=== PATIENT | female | born 1960 | race Caucasian/White ===

== ENCOUNTER 2024-07-18 06:44 | Emergency (ER) | payer BC ==
--- NOTE | 2024-07-18 07:41 | ED ---
General Adult HPI - General Source: patient, RN notes reviewed Mode of arrival: ambulatory Limitations: no limitations <Jyoti Saldivar - Last Filed: 07/18/24 07:41> - General Source: patient, RN notes reviewed, old records reviewed <Garrett Bah - Last Filed: 07/18/24 12:34> - General Chief complaint: Vaginal Bleeding Stated complaint: vaginal bleeding Time Seen by Provider: 07/18/24 07:41 - History of Present Illness Initial comments: Quick note: 63-year-old female presents to the emergency department for evaluation of vaginal bleeding. Patient reports that this has been ongoing for the past 2 years but has been light bleeding. She notes that over the past 2 days she has had significantly heavier bleeding. (Jyoti Saldivar) Patient is a 63-year-old female who presents emergency department vaginal bleeding. Originally seen as a quick note. Patient has a history of vaginal bleeding that has been progressively worsening over the last 2 years. Has not had any [facility] follow-up. States that over the last few days it has been more heavy. Presents for further evaluation. Has not seen [facility] or a physician in multiple years. Is not on blood thinners. Endorses abdominal cramping with it. Denies any chest pain, GAIL. Denies any weakness or lightheadedness. Presents over concerning for the bleeding. No abdominal surgical history. (Garrett Bah) - Related Data Allergies Allergy/AdvReac Type Severity Reaction Status Date / Time No Known Allergies Allergy Verified 07/18/24 07:33 Review of Systems ROS Other: All systems not noted in ROS Statement are negative. <Jyoti Saldivar - Last Filed: 07/18/24 07:41> ROS Other: All systems not noted in ROS Statement are negative. <Garrett Bah - Last Filed: 07/18/24 12:34> ROS Statement: Those systems with pertinent positive or pertinent negative responses have been documented in the HPI. Review of Systems: CONST: Denies fever EYES: Denies blurry vision ENT: Denies nasal congestion C/V: Denies Chest pain RESP: Denies shortness of breath GI: Denies abdominal pain : Endorses vaginal bleeding SKIN: Denies rash. MSK: Denies joint pain. NEURO: Denies headache (Garrett Bah) Past Medical History Past Medical History: Coronary Artery Disease (CAD) History of Any Multi-Drug Resistant Organisms: None Reported Past Surgical History: No Surgical Hx Reported Past Psychological History: No Psychological Hx Reported Smoking Status: Never smoker Past Alcohol Use History: None Reported Past Drug Use History: None Reported <Jyoti Saldivar - Last Filed: 07/18/24 07:41> General Exam Limitations: no limitations <Jyoti Saldivar - Last Filed: 07/18/24 07:41> <Garrett Bah - Last Filed: 07/18/24 12:34> - General Exam Comments Initial Comments: Visual Physical Exam Vital signs reviewed General: Well-appearing, nontoxic, no acute distress. Head: Normocephalic, atraumatic Eyes: PERRLA, EOMI ENT: Airway patent Chest: Nonlabored breathing Skin: No visual rash, normal skin tone Neuro: Alert and oriented 3 Musculoskeletal: No gross abnormalities (Jyoti Saldivar) General: Appears in no acute distress. HEAD: Normal with no signs of head trauma. EYES: EOMI ENT: Hearing grossly intact RESPIRATORY: Clear breath sounds bilaterally. No wheezes, rales, or rhonchi. C/V: Regular rate and rhythm. S1 and S2 auscultated. Peripheral pulses 2+ intact throughout. ABD: Abd is soft, nontender, nondistended EXT: Normal range of motion, no obvious deformity SKIN: No rashes or lesions observed on exposed skin. NEURO: Alert and oriented x 4. (Garrett Bah) Course Vital Signs 07/18/24 07:30 Temperature 98.6 F Pulse Rate 113 H Respiratory 20 Rate Blood Pressure 141/79 O2 Sat by Pulse 99 Oximetry Medical Decision Making <Jyoti Saldivar - Last Filed: 07/18/24 07:41> - Lab Data Result diagrams: 07/18/24 10:20 07/18/24 10:20 <Garrett Bah - Last Filed: 07/18/24 12:34> - Medical Decision Making Quick note preformed and electronically signed by Jyoti Saldivar PA-C (Jyoti Saldivar) Was pt. sent in by a medical professional or institution ([facility], [facility], urgent care, hospital, or senior care...) When possible be specific @ -No Did you speak to anyone other than the patient for history (EMS, parent, family, police, friend...)? What history was obtained from this source @ -No Did you review nursing and triage notes (agree or disagree)? Why? @ -I reviewed and agree with nursing and triage notes Were old charts reviewed (outside hosp., previous admission, EMS record, old EKG, old radiological studies, urgent care reports/EKG's, senior care records)? Report findings @ -No old charts were reviewed Differential Diagnosis (chest pain, altered mental status, abdominal pain women, abdominal pain men, vaginal bleeding, weakness, fever, dyspnea, syncope, headache, dizziness, GI bleed, back pain, seizure, CVA, palpatations, mental health, musculoskeletal)? @ -Differential Vaginal Bleeding: Spontaneous , threatened , molar , ectopic , bloody show, incompetent cervix, abruptioplacenta, placenta previa, uterine rupture, dysfunctional uterine bleeding, hemorrhage, uterine fibr oids, this is not meant to be an all-inclusive list. EKG interpreted by me (3pts min.). @ -None done X-rays interpreted by me (1pt min.). @ -None done CT interpreted by me (1pt min.). @ -None done U/S interpreted by me (1pt. min.). @ -Pelvic ultrasound reveals thickened endometrium concerning for endometrial carcinoma. What testing was considered but not performed or refused? (CT, X-rays, U/S, labs)? Why? @ -None What meds were considered but not given or refused? Why? @ -None Did you discuss the management of the patient with other professionals (professionals i.e. , PA, CLOTH SHEARER, lab, RT, psych nurse, social worker school, pulp [employer] supervisor, teacher, resident medical officer, upper caser)? Give summary @ -No Was smoking cessation discussed for >3mins.? @ -No Was critical care preformed (if so, how long)? @ -No Were there social determinants of health that impacted care today? How? (Homelessness, low income, unemployed, alcoholism, drug addiction, transportation, low edu. Level, literacy, decrease access to med. care, usp, rehab)? @ -No Was there de-escalation of care discussed even if they declined (Discuss DNR or withdrawal of care, Hospice)? DNR status @ -No What co-morbidities impacted this encounter? (DM, HTN, Smoking, COPD, CAD, Cancer, CVA, ARF, Chemo, Hep., AIDS, mental health diagnosis, sleep apnea, morbid obesity)? @ -None Was patient admitted / discharged? Hospital course, mention meds given and route, prescriptions, significant lab abnormalities, going to OR and other pertinent info. @ -Patient presents with chronic vaginal bleeding that is worsened over the last few days. Patient originally seen as a quick note. Ultrasound has been completed by the time evaluated the patient. I did inform her that it did show a thickened endometrial with concern for endometrial carcinoma. We will continue with laboratory studies to evaluate for possible anemia or coagulation abnormalities. She was in agreement this plan. Vital signs are within acceptable limits. She will be given dose of Tylenol for pain control. Laboratory studies remarkable for mild leukocytosis of 15 which is likely reactive. Urinalysis shows diffuse blood and WBCs but this is likely from the vaginal bleeding. No concern for UTI at this time. I discussed results with the patient. She expresses understanding of the urgency for follow-up considering her potential diagnosis of endometrial carcinoma. She was in agreement with plan for close follow-up with [facility]. I also provided her with a print out list of [facility] endometrial carcinoma specialist. She is given their phone number for calling tomorrow. Patient is also given a copy of her ultrasound disc as well as ultrasound report. She was given a list of [facility] PCPs as well as a local [facility]. Patient expressed understanding of these instructions with for close follow-up for further evaluation. She was in agreement with this plan for discharge at this time. Strict return precautions discussed. I instructed the patient to follow up with their PCP in the next 1-3 days. I explained that the patient should return to the emergency department if they experience any worsening symptoms. Strict return precautions were discussed with the patient. The patient expressed understanding of these instructions. I answered all questions that the patient had. The patient was discharged home in good condition with their prescriptions and follow up information. Undiagnosed new problem with uncertain prognosis? @ -No Drug Therapy requiring intensive monitoring for toxicity (Heparin, Nitro, Insulin, Cardizem)? @ -No Were any procedures done? @ -No Diagnosis/symptom? @ -Dysfunctional uterine bleeding, concerning findings for endometrial carcinoma Acute, or Chronic, or Acute on Chronic? @ -Acute on chronic Uncomplicated (without systemic symptoms) or Complicated (systemic symptoms)? @ -Complicated Side effects of treatment? @ -No Exacerbation, Progression, or Severe Exacerbation? @ -No Poses a threat to life or bodily function? How? (Chest pain, USA, MD, pneumonia, PE, COPD, DKA, ARF, appy, cholecystitis, CVA, Diverticulitis, Homicidal, Suicidal, threat to staff... and all critical care pts) @ -Unlikely in the short-term but if patient has endometrial carcinoma, can be life-threatening. (Garrett Bah) - Lab Data Lab Results 07/18/24 07/18/24 07/18/24 Range/Units 09:54 10:20 10:20 WBC 15.4 H (3.8-10.6) k/uL RBC 4.07 (3.80-5.40) m/uL Hgb 12.3 (11.4-16.0) gm/dL Hct 36.1 (34.0-46.0) % MCV 88.8 (80.0-100.0) fL MCH 30.2 (25.0-35.0) pg MCHC 34.0 (31.0-37.0) g/dL RDW 13.3 (11.5-15.5) % Plt Count 364 (150-450) k/uL MPV 7.6 Neutrophils % 87 % Lymphocytes % 8 % Monocytes % 4 % Eosinophils % 0 % Basophils % 0 % Neutrophils # 13.4 H (1.3-7.7) k/uL Lymphocytes # 1.2 (1.0-4.8) k/uL Monocytes # 0.6 (0-1.0) k/uL Eosinophils # 0.1 (0-0.7) k/uL Basophils # 0.1 (0-0.2) k/uL PT 10.6 (10.0-12.5) sec INR 0.9 (<1.2) APTT 21.7 L (22.0-30.0) sec Sodium (137-145) mmol/L Potassium (3.5-5.1) mmol/L Chloride (98-107) mmol/L Carbon Dioxide (22-30) mmol/L Anion Gap mmol/L BUN (7-17) mg/dL Creatinine (0.52-1.04) mg/dL Est GFR (CKD-EPI)AfAm (>60 ml/min/1.73 sqM) Est GFR (CKD-EPI)NonAf (>60 ml/min/1.73 sqM) Glucose (74-99) mg/dL Calcium (8.4-10.2) mg/dL Total Bilirubin (0.2-1.3) mg/dL AST (14-36) U/L ALT (4-34) U/L Alkaline Phosphatase (38-126) U/L Total Protein (6.3-8.2) g/dL Albumin (3.5-5.0) g/dL Urine Appearance Bloody H (Clear) Urine RBC >182 H (0-5) /hpf Urine WBC 127 H (0-5) /hpf Blood Type Blood Type Confirm Blood Type Recheck Bld Type Recheck Status Antibody Screen Spec Expiration Date 07/18/24 07/18/24 07/18/24 Range/Units 10:20 10:20 10:25 WBC (3.8-10.6) k/uL RBC (3.80-5.40) m/uL Hgb (11.4-16.0) gm/dL Hct (34.0-46.0) % MCV (80.0-100.0) fL MCH (25.0-35.0) pg MCHC (31.0-37.0) g/dL RDW (11.5-15.5) % Plt Count (150-450) k/uL MPV Neutrophils % % Lymphocytes % % Monocytes % % Eosinophils % % Basophils % % Neutrophils # (1.3-7.7) k/uL Lymphocytes # (1.0-4.8) k/uL Monocytes # (0-1.0) k/uL Eosinophils # (0-0.7) k/uL Basophils # (0-0.2) k/uL PT (10.0-12.5) sec INR (<1.2) APTT (22.0-30.0) sec Sodium 137 (137-145) mmol/L Potassium 4.0 (3.5-5.1) mmol/L Chloride 101 (98-107) mmol/L Carbon Dioxide 24 (22-30) mmol/L Anion Gap 12 mmol/L BUN 18 H (7-17) mg/dL Creatinine 0.84 (0.52-1.04) mg/dL Est GFR (CKD-EPI)AfAm 85 (>60 ml/min/1.73 sqM) Est GFR (CKD-EPI)NonAf 74 (>60 ml/min/1.73 sqM) Glucose 114 H (74-99) mg/dL Calcium 9.4 (8.4-10.2) mg/dL Total Bilirubin 0.8 (0.2-1.3) mg/dL AST 28 (14-36) U/L ALT 26 (4-34) U/L Alkaline Phosphatase 80 (38-126) U/L Total Protein 7.4 (6.3-8.2) g/dL Albumin 4.6 (3.5-5.0) g/dL Urine Appearance (Clear) Urine RBC (0-5) /hpf Urine WBC (0-5) /hpf Blood Type A Negative Blood Type Confirm A Negative Blood Type Recheck No Previous Record Bld Type Recheck Status CABO Indicated Antibody Screen NEGATIVE Spec Expiration Date 07/21/20242319 Disposition <Jyoti Sadlivar - Last Filed: 07/18/24 07:41> Is patient prescribed a controlled substance at d/c from ED?: No Time of Disposition: 12:21 <Garrett Bah - Last Filed: 07/18/24 12:34> Clinical Impression: Dysfunctional uterine bleeding Narrative: Concern for Endometrial carcinoma (Garrett Bah) Disposition: HOME SELF-CARE Condition: Fair Instructions (If sedation given, give patient instructions): Dysmenorrhea (ED) Additional Instructions: There is concern for endometrial carcinoma based on ultrasound findings today. Continue to monitoring your bleeding return to the ER for any worsening symptoms. You need close follow-up as well as evaluation by [facility]LECT[facility] and [facility] oncology. Please contact the providers provided to you from [facility] to obtain close follow-up. Please contact [facility] for close follow-up that is provided to you. Please obtain a PCP. You need very close follow-up to obtain further workup to better classify findings on ultrasound and evaluate for possible endometrial carcinoma. This can be life-threatening. Return if worsening symptoms. Referrals: None,Stated [Primary Care Provider] - 1-2 days Amanda Noble MD [STAFF PHYSICIAN] - 1-2 days Forms: Area PCPs
--- NOTE | 2024-07-18 10:03 | US ---
EXAMINATION TYPE: US transvaginal DATE OF EXAM: 07/18/2024 COMPARISON: NONE CLINICAL INDICATION: Female, 63 years old with history of bleeding; post nakia Vag bleed x 2 years, wo rse today with heavy bleeding and clots TECHNIQUE: Transvaginal (TV). Transvaginal sonographic images were medically necessary to better assess the following anatomy: Endo metrium Doppler imaging: Not performed. FINDINGS: Date of LMP: 2012 EXAM MEASUREMENTS: Uterus: 9.8x5.0x6.7 cm Endometrial Stripe: 2.2 cm Right Ovary: Not visualized due to bowel gas. Left Ovary: Not visualized due to bowel gas. 1. Uterus: Retroverted heterogenous 2. Endometrium: difficult to appreciate borders, heterogenous, thickened with vascularity. 3. Right Ovary: Obscured by overlying bowel gas 4. Left Ovary: Obscured by overlying bowel gas 5. Bilateral Adnexa: Obscured by overlying bowel gas 6. Posterior cul-de-sac: wnl exam limited by shadowing, bowel gas, uterine position IMPRESSION: Thickened endometrium for patient's age concerning for endometrial carcinoma. Further workup recommen ded. [facility], , 07/18/2024 10:01 AM
[2024-07-18] MEDS: ACETAMINOPHEN TAB 500 MG TAB PO STA (10:34)
[2024-07-18 10:35] LABS: Basophils # (A) 0.1 k/uL (0-0.2); Basophils % (A) 0 %; Eosinophils # (A) 0.1 k/uL (0-0.7); Eosinophils % (A) 0 %; HCT 36.1 % (34.0-46.0); HGB 12.3 gm/dL (11.4-16.0); Lymphocytes # (A) 1.2 k/uL (1.0-4.8); Lymphocytes % (A) 8 %; MCH 30.2 pg (25.0-35.0); MCV 88.8 fL (80.0-100.0); Mean Platelet Volume 7.6; Monocytes # (A) 0.6 k/uL (0-1.0); Monocytes % (A) 4 %; Neutrophils # (A) 13.4 k/uL (1.3-7.7); Neutrophils % (A) 87 %; Platelet Count 364 k/uL (150-450); RBC 4.07 m/uL (3.80-5.40); RDW 13.3 % (11.5-15.5); WBC 15.4 k/uL (3.8-10.6)
[2024-07-18 10:43] LABS: ALT 26 U/L (4-34); AST 28 U/L (14-36); African American GFR (CKD) 85 (>60 ml/min/1.73 sqM); Albumin 4.6 g/dL (3.5-5.0); Alkaline Phosphatase 80 U/L (38-126); Anion Gap 12 mmol/L; Blood Urea Nitrogen 18 mg/dL (7-17); Calcium 9.4 mg/dL (8.4-10.2); Carbon Dioxide 24 mmol/L (22-30); Chloride 101 mmol/L (98-107); Glucose 114 mg/dL (74-99); Non-African American GFR(CKD) 74 (>60 ml/min/1.73 sqM); Sodium 137 mmol/L (137-145); Total Bilirubin 0.8 mg/dL (0.2-1.3); Total Protein 7.4 g/dL (6.3-8.2)
[2024-07-18 10:51] LABS: RBC,Urine >182 /hpf (0-5); WBC,Urine 127 /hpf (0-5)
[2024-07-18 10:52] LABS: Appearance,Urine Bloody (Clear)
[2024-07-18 11:01] LABS: INR 0.9 (<1.2); Prothrombin Time 10.6 sec (10.0-12.5)
[2024-07-18 11:25] LABS: Partial Thromboplastin Time 21.7 sec (22.0-30.0)
[2024-07-18 12:34] VITALS: BP 130/78; PULSE 98; RESP 18; TEMP 98.1
== END 2024-07-18 12:35 | disposition home or self-care (01) ==
LOC: EC 06:44
DX: N93.8 Other specified abnormal uterine and vaginal bleeding (principal)
CPT/HCPCS: 36415; 76830; 80053; 81001; 85025; 85610; 85730; 86850; 86900; 86901; 99284

== ENCOUNTER → 2024-12-30 | Outpatient (CLI) | payer MEDICARE ==
[2024-12-30 19:54] LABS: T4, Free (Free Thyroxine) 0.79 ng/dL (0.80-1.80)
== END | disposition home or self-care (01) ==
LOC: LABWHC1 16:02
PROVIDERS: ATTEND Obstetrics & Gynecology
DX: C54.1 Malignant neoplasm of endometrium (principal)
CPT/HCPCS: 36415; 84439; 84443; 84481